=== PATIENT | male | born 1960 | race Caucasian/White ===

== ENCOUNTER 2022-03-12 08:37 | Emergency (ER) | payer OTHER ==
[2022-03-12] MEDS ORDERED: Iopamidol 612 MG/ML 100 ML Bottle IVPUSH ONE (08:55)
[2022-03-12] MEDS ORDERED: HYDROmorphone 1 MG/ML Syringe IVPUSH ONE (08:55)
[2022-03-12] MEDS ORDERED: Sodium Chloride 0.9% 10 ML Syringe FLUSH PRN (08:55)
[2022-03-12] MEDS ORDERED: Iopamidol 612 MG/ML 50 ML SDV IVPUSH ONE (08:55)
[2022-03-12] MEDS: HYDROmorphone 1 MG/ML Syringe ONE ×2 (08:58)
[2022-03-12] MEDS: Sodium Chloride 0.9% 10 ML Syringe FLUSH PRN ×2 (09:00→11:48)
[2022-03-12] MEDS ORDERED: HYDROmorphone 0.5 MG/0.5 ML Syringe IVPUSH ONE (11:13)
[2022-03-12] MEDS ORDERED: Ketorolac 30 MG/ML SDV IVPUSH ONE (11:14)
== END 2022-03-12 12:30 | disposition home or self-care (01) ==
LOC: JD.ED 08:37
DX: S22.41XA Multiple fractures of ribs, right side, initial encounter for closed fracture (principal); V86.99XA Unspecified occupant of other special all-terrain or other off-road motor vehicle injured in nontraffic accident, initial encounter; Y92.410 Unspecified street and highway as the place of occurrence of the external cause
CPT/HCPCS: 36415; 70450; 71260; 72125; 74177; 80053; 83690; 85025; 93005; 96374; 96375; 99284; J1170; J1885; J3490; Q9967